=== PATIENT | male | born 1985 | race Caucasian/White ===

== ENCOUNTER 2019-08-23 10:26 | Emergency (ER) | payer SELFPAY ==
[2019-08-23 10:33] VITALS: BP 119/72; PULSE 120; RESP 20; TEMP 37.1; O2SAT 100
[2019-08-23] MEDS: IBUPROFEN IV 800 MG/200 ML 800 MG/200 ML BAG 400 MG IVPB (11:05)
[2019-08-23] MEDS: ceFAZolin SODIUM 1 GM VIAL IV PUSH (11:05)
[2019-08-23] MEDS: SODIUM CHLORIDE 0.9% IV 1,000 ML 999 ML IV CONT (11:06)
[2019-08-23] MEDS: WATER, STERILE FOR INJECTION 10 ML VIAL XX (12:27)
--- NOTE | 2019-08-23 13:00 | ED.GENADULT ---
HPI - General Adult General Chief complaint: Wound/Laceration <SHALA Jones Last Filed: 08/23/19 13:41> Stated complaint: bite on left leg <SHALA Jones Last Filed: 08/23/19 13:41> Time Seen by Provider: 08/23/19 10:39 <SHALA Jones Last Filed: 08/23/19 13:41> Related Data Allergies/adverse reactions: Allergies Allergy/AdvReac Type Severity Reaction Status Date / Time Contrast Media Allergy Mild Anaphylactic Uncoded 08/23/19 10:35 Shock SEA FOOD Allergy Unknown Anaphylaxis Uncoded 08/23/19 10:35 <SHALA Jones Last Filed: 08/23/19 13:41> Exam Narrative: Exam Narrative: GENERAL: Well-appearing, well-nourished, and in no acute distress. HEAD: Normocephalic, atraumatic. EYES: PERRLA and EOMI. ENT: Nares clear, no rhinorrhea or epistaxis. Mucous membranes moist. CHEST: Clear to auscultation. No respiratory distress. No wheezes rales or rhonchi HEART: Regular rate and rhythm. No murmur heard. EXTREMITIES: Normal range of motion. No edema. SKIN: Warm, dry, no rash. Patient with 3 cm red tender swollen lesion to the lateral aspect of the left mid mcconnell with purulent drainage NEURO: No focal deficits. Alert and oriented x3. Neurovascularly intact. Capillary refill less than 2 seconds PSYCH: Normal mood and affect. <SHALA Jones Last Filed: 08/23/19 13:41> Course Course Emergency Course: Patient in the room in no distress aware of case findings treatment plan diagnosis <SHALA Jones Last Filed: 08/23/19 13:41> Vital Signs Vital signs: Vital Signs Temperature 98.8 F 08/23/19 10:33 Pulse Rate 120 H 08/23/19 10:33 Respiratory Rate 20 08/23/19 10:33 Blood Pressure 119/72 08/23/19 10:33 Pulse Oximetry 100 08/23/19 10:33 Temperature 98.8 F 08/23/19 10:33 Pulse Rate 100 08/23/19 13:18 Respiratory Rate 12 08/23/19 13:18 Blood Pressure 121/75 08/23/19 13:18 Pulse Oximetry 99 08/23/19 13:18 <Domo Solis PA-C - Last Filed: 08/23/19 13:41> Vital Signs Temperature 98.8 F 08/23/19 10:33 Pulse Rate 120 H 08/23/19 10:33 Respiratory Rate 20 08/23/19 10:33 Blood Pressure 119/72 08/23/19 10:33 Pulse Oximetry 100 08/23/19 10:33 Temperature 98.8 F 08/23/19 10:33 Pulse Rate 100 08/23/19 13:18 Respiratory Rate 12 08/23/19 13:18 Blood Pressure 121/75 08/23/19 13:18 Pulse Oximetry 99 08/23/19 13:18 <Kimberly Pablo MD - Last Filed: 08/23/19 20:00> Procedures Abscess I/D skin: Date of Incision: 08/23/19 <Domo Solis PA-C - Last Filed: 08/23/19 13:41> Time of Incision: 13:01 <Domo Solis PA-C - Last Filed: 08/23/19 13:41> Side (if applicable): left <Domo Solis PA-C - Last Filed: 08/23/19 13:41> Local Anesthetic: lidocaine 1% <SHALA Jones Last Filed: 08/23/19 13:41> Technique: incised with #11 blade <SHALA Jones Last Filed: 08/23/19 13:41> Amount of fluid expressed (mL): 3 <SHALA Jones Last Filed: 08/23/19 13:41> Irrigation: No <SHALA Jones Last Filed: 08/23/19 13:41> Packing used?: iodoform <SHALA Jones Last Filed: 08/23/19 13:41> I&D Results: Pus and Blood <SHALA Jones Last Filed: 08/23/19 13:41> Complications: pain and bleeding <SHALA Jones Last Filed: 08/23/19 13:41> Medical Decision Making MDM Narrative Medical decision making narrative: Patient had I&D of his abscess in the room in no distress given some fluids had wound culture obtained felt appropriate for outpatient reevaluation <Dmoo Solis PA-C - Last Filed: 08/23/19 13:41> Vital Signs Vital Signs: Vital Signs Temperature 98.8 F 08/23/19 10:33 Pulse Rate 120 H 08/23/19 10:33 Respiratory Rate 20 08/23/19 10:33
[2019-08-23 13:18] VITALS: BP 121/75; PULSE 100; RESP 12; O2SAT 99
== END 2019-08-23 13:30 | disposition home or self-care (01) ==
PROVIDERS: Emergency Provider Emergency Medicine
DX: L02.416 Cutaneous abscess of left lower limb (principal)
CPT/HCPCS: 10061; 87070; 87075; 87147; 87186; 87205; 96365; 96375; 99284; J0690; J1741; J7030

== ENCOUNTER 2020-01-31 01:14 | Emergency (ER) | payer SELFPAY ==
[2020-01-31 01:26] VITALS: BP 133/89; PULSE 96; RESP 18; TEMP 36.1; O2SAT 99
[2020-01-31] MEDS: SODIUM CHLORIDE 0.9% IV 1,000 ML 999 ML IV CONT (01:48)
[2020-01-31] MEDS: ONDANSETRON INJ 4 MG/2 ML VIAL IV PUSH (01:48)
[2020-01-31 01:49] LABS: Basophils Absolute Auto 0.1 K/mm3 (0.0-0.1); Basophils Percent Auto 0.5 % (0.2-1.2); Eosinophils Absolute Auto 0.1 K/mm3 (0-0.3); Eosinophils Percent Auto 0.6 % (0-4.4); Hematocrit 50.4 % (42.0-52.0); Hemoglobin 17.8 g/dL (14.0-18.0); Immature Granulocyte Absolute 0.03 K/mm3 (0.00-0.031); Immature Granulocyte Percent A 0.2 % (0-0.5); Lymphocytes Absolute Auto 2.85 K/mm3 (0.9-3.2); Lymphocytes Percent Auto 22.1 % (18.3-44.2); Mean Corpuscular HGB Conc 35.3 g/dl (32-36); Mean Corpuscular Hemoglobin 31.2 pg (26-34); Mean Corpuscular Volume 88.3 fl (80-100); Mean Platelet Volume 11.2 fl (7.4-10.4); Monocytes Absolute Auto 1.3 K/mm3 (0.1-0.6); Monocytes Percent Auto 9.7 % (2.6-8.5); Neutrophils Absolute Auto 8.6 K/mm3 (1.3-6.7); Neutrophils Percent Auto 66.9 % (45.5-73.1); Platelet Count Result 242 k/mm3 (150-375); Red Blood Count 5.71 M/mm3 (4.6-6.20); Red Cell Distribution Width 12.3 % (11.5-14.5); White Blood Count 12.9 K/mm3 (4.5-10.0)
[2020-01-31 02:06] LABS: Alanine Aminotransferase 38 U/L (4-50); Albumin Level 4.7 g/dL (3.5-5.1); Alkaline Phosphatase 100 U/L (38-126); Anion Gap 9 mmol/L (8-16); Aspartate Amino Transferase 37 U/L (17-59); Blood Urea Nitrogen 11 mg/dL (9-20); Calcium 9.9 mg/dL (8.4-10.2); Carbon Dioxide 27 mmol/L (22-30); Chloride 101 mmol/L (98-107); Estimated CRCL calculation 104 ml/min; Estimated Glomerular Filt Rate > 60; Glucose 119 mg/dL (75-110); Lipase 24 U/L (23-300); Potassium 3.4 mmol/L (3.4-5.0); Sodium 137 mmol/L (137-145)
--- NOTE | 2020-01-31 02:19 | ED.NAVMDI ---
HPI - Nausea/Vomiting/Diarrhea General Chief complaint: Nausea/Vomiting/Diarrhea Stated complaint: vomiting,diarrhea,body feels numb Time Seen by Provider: 01/31/20 01:18 History of Present Illness HPI Narrative: Patient is a 34-year-old male who presents ER with nausea and vomiting. Symptoms began today. Reports he had 2 episodes of vomiting. This is associated with 6 episodes of diarrhea. Started out as large volume and then became smaller and smaller. Reports since then he has been feeling weak and then started feeling tingling in his fingertips and toes. No documented fevers or chills. Reports that there are no sick contacts at home but he does have children. No known Covid contacts. No alleviating factors. Related Data Allergies Allergy/AdvReac Type Severity Reaction Status Date / Time Contrast Media Allergy Intermediate Anaphylactic Uncoded 01/31/20 01:31 Shock SEA FOOD Allergy Intermediate Anaphylaxis Uncoded 01/31/20 01:31 Review of Systems Review of Systems: All systems reviewed & are unremarkable except as noted in HPI and below Constitutional: Constitutional: Denies chills, Denies fever(s) and Reports weakness ENT: Denies nasal congestion and Denies sore throat Gastrointestinal: Gastrointestinal: Denies abdominal pain, Reports diarrhea, Reports nausea and Reports vomiting Neurologic: Denies focal weakness and Denies numbness Comments: Hand and toe tingling PMFSH Past Medical History Medical History (Updated 01/31/20 @ 03:46 by Alex Dawn MD) Healthy adult male Surgical History Surgical History (Updated 01/31/20 @ 02:20 by Alex Dawn MD) No history of previous surgery Social History Social History (Updated 01/31/20 @ 02:21 by Alex Dawn MD) Tobacco type: cigarettes Gender identity (if verbalized by the patient): Male Exam Narrative: Exam Narrative: GENERAL: Fatigued-appearing, well-nourished, and in no acute distress. HEAD: Normocephalic, atraumatic. CHEST: Clear to auscultation. No respiratory distress. HEART: Regular rate and rhythm. Normal peripheral pulses. ABDOMEN: Soft, nontender, nondistended. EXTREMITIES: Normal range of motion. No edema. SKIN: Warm, dry, no rash. NEURO: No focal deficits. Alert and oriented x3. PSYCH: Normal mood and affect. Course Course Emergency Course: Tingling improved with IV fluid. Now reports he has new throbbing headache. Will give Toradol. Discharge home and will Covid swab. Discussed self-isolation until received results and patient verbalized understanding. Vital Signs Vital signs: Vital Signs Temperature 97.0 F L 01/31/20 01:26 Pulse Rate 96 01/31/20 01:26 Respiratory Rate 18 01/31/20 01:26 Blood Pressure 133/89 01/31/20 01:26 Pulse Oximetry 99 01/31/20 01:26 Temperature 97.0 F L 01/31/20 01:26 Pulse Rate 78 01/31/20 03:00 Respiratory Rate 16 01/31/20 03:00 Blood Pressure 126/78 01/31/20 03:00 Pulse Oximetry 100 01/31/20 03:00 MDM - Nausea/Vomiting/Diarrhea Lab Data Result diagrams: 01/31/20 01:40 01/31/20 01:40 Labs: Lab Results 01/31/20 01/31/20 01/31/20 Range/Units 01:40 01:40 03:04 WBC 12.9 H (4.5-10.0) K/mm3 RBC 5.71 (4.6-6.20) M/mm3 Hgb 17.8 (14.0-18.0) g/dL Hct 50.4 (42.0-52.0) % MCV 88.3 (80-100) fl MCH 31.2 (26-34) pg MCHC 35.3 (32-36) g/dl RDW 12.3 (11.5-14.5) % Plt Count 242 (150-375) k/mm3 MPV 11.2 H (7.4-10.4) fl Immature Gran % (Auto) 0.2 (0-0.5) % Neut % (Auto) 66.9 (45.5-73.1) % Lymph % (Auto) 22.1 (18.3-44.2) % [place]more % (Auto) 9.7 H (2.6-8.5) % Eos % (Auto) 0.6 (0-4.4) % Baso % (Auto) 0.5 (0.2-1.2) % Lymph # (Auto) 2.85 (0.9-3.2) K/mm3 [place]more # (Auto) 1.3 H (0.1-0.6) K/mm3 Eos # (Auto) 0.1 (0-0.3) K/mm3 Baso # (Auto) 0.1 (0.0-0.1) K/mm3 Abs Immat Gran (auto) 0.03 (0.00-0.031) K/mm3 Absolute Neuts (auto) 8.
[2020-01-31 03:00] VITALS: BP 126/78; PULSE 78; RESP 16; O2SAT 100
[2020-01-31 03:19] LABS: Add Urine Microscopic? YES; Appearance Urine Clear (Clear); Bilirubin Urine Negative (Negative); Blood Urine Negative (Negative); Color Urine Yellow (Yellow); Glucose Urine UA Negative (Negative); Ketones Urine 1+ mg/dL (Negative); Leukocyte Esterase Ur Negative LEU/UL (Negative); Mucus Urine Heavy /lpf; Nitrate Urine Negative (Negative); Protein Urine 1+ mg/dL (Negative); RBC Urine 0-2 /hpf (0-2); Specific Grav Ur 1.028 (1.001-1.035); Squamous Epithelial Cell Urine Rare /hpf (Few); WBC Urine 0-3 /hpf
[2020-01-31] MEDS: KETOROLAC 30 MG/ML VIAL (*BKC) IV PUSH (03:53)
[2020-01-31 03:59] VITALS: BP 138/91; PULSE 91; RESP 18; TEMP 36.9; O2SAT 99
[2020-01-31 22:42] LABS: SARS-CoV-2 RNA PCR Negative
== END 2020-01-31 03:59 | disposition home or self-care (01) ==
PROVIDERS: Emergency Provider Emergency Medicine
DX: B34.9 Viral infection, unspecified (principal); Z20.828 Contact with and (suspected) exposure to other viral communicable diseases; F17.210 Nicotine dependence, cigarettes, uncomplicated
CPT/HCPCS: 36415; 80053; 81001; 83690; 85025; 87635; 96361; 96374; 96375; 99284; C9803; J1885; J2405; J7030; U0003

== ENCOUNTER 2020-02-16 07:40 | Emergency (ER) | payer BC, SELFPAY ==
--- NOTE | ~2020-02-16 | CT_ITS ---
EXAMINATION: CT abdomen pelvis wo con DATE: 02/16/2020 08:26 INDICATION: Lower abdominal pain. Flank pain. TECHNIQUE: Computed tomography (CT) of the abdomen and pelvis was performed without intravenous contr ast. Automated exposure control and iterative reconstruction technique were employed. The dose-length product was 226.59 mGy-cm. COMPARISON: None FINDINGS: Lung bases are clear. Visualized inferior heart is normal. No pericardial or pleural effusion. Focal hepatic steatosis at the ligamentum teres. Gallbladder, spleen, pancreas and bilateral adrenal glands are normal. Kidneys and ureters are normal with no urolithiasis, hydroureteronephrosis or perinephri c/ureteral stranding. No bowel obstruction. Normal appendix. Bladder is normal. No free intraperitone al gas or fluid. No pathologically enlarged abdominal or pelvic lymphadenopathy. Minimal anterior wed ging at T11-L1. IMPRESSION: 1. No acute intra-abdominal/pelvic process. Reviewed, dictated and finalized at location A. [employer]
--- NOTE | 2020-02-16 07:42 | ED.ABDPAIN ---
HPI - Abdominal Pain General Chief Complaint: Abdominal Pain Stated Complaint: abd and back pain/smell from pores Time Seen by Provider: 02/16/20 07:42 Source: patient Mode of arrival: ambulatory Limitations: no limitations History of Present Illness HPI narrative: Patient is a 34-year-old male who presents for evaluation of lower abdominal pain. Patient states lower abdominal pain began 2 to 3 days ago, described as dull, aching in nature that radiates in a bandlike pattern to the bilateral lower flanks. No midline back pain. No numbness or weakness. Noted with ambulation, no difficulty with bowel movements or urination. No recent falls or injuries. Patient states he abdominal pain is associated with dysuria without hematuria, testicular pain or penile discharge. Patient denies any history of sexually transmitted infection. States he may have been exposed to genital herpes in the past, but states he has never had any chlamydia or gonorrhea. He denies any swollen lymph nodes in his groin. He reports nausea without vomiting. He denies fever or chills. No cough, chest pain or shortness of breath. Patient states he also has a strange smell in his sheets and he is worried he words smells coming from his pores. He has no known history of diabetes. Denies any history of previous medical problems or surgeries. Patient states he is a daily drinker, approximately 4-5 shots daily. No history of alcohol withdrawal seizures or seizures in general. Related Data Allergies Allergy/AdvReac Type Severity Reaction Status Date / Time Contrast Media Allergy Intermediate Anaphylactic Uncoded 02/16/20 07:52 Shock SEA FOOD Allergy Intermediate Anaphylaxis Uncoded 02/16/20 07:52 Review of Systems Review of Systems: Narrative: CONSTITUTIONAL: Denies fever, chills, or sweats. EYES: Denies visual changes, redness, or discharge. ENT: Denies rhinorrhea, congestion, sore throat, or otalgia. CARDIOVASCULAR: Denies chest pain, palpitations, or edema. RESPIRATORY: Denies cough or dyspnea. GASTROINTESTINAL: Reports lower abdominal pain, nausea without vomiting, reports mild diarrhea GENITOURINARY: Denies dysuria or hematuria. SKIN: Denies rash or itching. MUSCULOSKELETAL: Reports lower back pain without joint pain NEUROLOGIC: Denies headache, numbness, or weakness. [facility] Past Medical History Medical History Healthy adult male Surgical History Surgical History No history of previous surgery Social History Social History (Updated 02/16/20 @ 08:11 by Teetee Nolan MD) Smoking status: Former smoker Tobacco type: cigarettes Alcohol intake: current Drinks per week: 20 Substance use: never Gender identity (if verbalized by the patient): Male Exam Narrative: Exam Narrative: GENERAL: Awake, alert, conversant HEAD: Normocephalic, atraumatic. EYES: PERRLA and EOMI. ENT: Nares clear, no rhinorrhea or epistaxis. Mucous membranes moist. NECK: Supple. No midline cervical tenderness. CHEST: No respiratory distress, breathing even and non labored HEART: Tachycardic rate, sinus rhythm ABDOMEN:Non distended, mild tenderness in the right and left lower abdomen without guarding, rebound or rigidity, mild bilateral CVA tenderness, no midline lumbar or thoracic tenderness, no step-offs or deformities EXTREMITIES: Normal range of motion. No edema. SKIN: Warm, dry, no rash. NEURO:No focal deficits. Alert and oriented x3 Course Vital Signs Vital signs: Vital Signs Temperature 36.7 C 02/16/20 07:49 Pulse Rate 110 H 02/16/20 07:49 Respiratory Rate 16 02/16/20 07:49 Blood Pressure 140/97 H 02/16/20 07:49 Pulse Oximetry 100 02/16/20 07:49 Temperature 36.7 C 02/16/20 07:49 Pulse Rate 80 02/16/20 10:00 Respiratory Rate 16 02/16/20 10:00 Blood Pressure 123/84 02/16/20 10:00 Pulse Oximetry 98 02/16/20 10
[2020-02-16 07:49] VITALS: BP 140/97; PULSE 110; RESP 16; TEMP 36.7; O2SAT 100
[2020-02-16] MEDS: SODIUM CHLORIDE 0.9% IV 1,000 ML 999 ML IV CONT (08:20)
[2020-02-16 08:31] LABS: Basophils Absolute Auto 0.1 K/mm3 (0.0-0.1); Basophils Percent Auto 0.7 % (0.2-1.2); Eosinophils Absolute Auto 0.1 K/mm3 (0-0.3); Eosinophils Percent Auto 1.6 % (0-4.4); Hematocrit 48.8 % (42.0-52.0); Hemoglobin 17.1 g/dL (14.0-18.0); Immature Granulocyte Absolute 0.02 K/mm3 (0.00-0.031); Immature Granulocyte Percent A 0.2 % (0-0.5); Lymphocytes Absolute Auto 2.89 K/mm3 (0.9-3.2); Lymphocytes Percent Auto 34.6 % (18.3-44.2); Mean Corpuscular Hemoglobin 30.6 pg (26-34); Mean Corpuscular Volume 87.5 fl (80-100); Mean Platelet Volume 11.4 fl (7.4-10.4); Monocytes Absolute Auto 0.8 K/mm3 (0.1-0.6); Monocytes Percent Auto 10.1 % (2.6-8.5); Neutrophils Absolute Auto 4.4 K/mm3 (1.3-6.7); Neutrophils Percent Auto 52.8 % (45.5-73.1); Platelet Count Result 187 k/mm3 (150-375); Red Blood Count 5.58 M/mm3 (4.6-6.20); Red Cell Distribution Width 11.9 % (11.5-14.5); White Blood Count 8.4 K/mm3 (4.5-10.0)
[2020-02-16] MEDS: FOLIC ACID 1 MG TABLET PO (08:40)
[2020-02-16] MEDS: THIAMINE HCL 200 MG/2 ML VIAL 100 MG IM (08:40)
[2020-02-16 08:47] LABS: Ethanol < 10 mg/dL (<10)
[2020-02-16 08:49] LABS: Glucose Point of Care 143 (65-105)
[2020-02-16 08:49] LABS: Alanine Aminotransferase 54 U/L (4-50); Albumin Level 4.3 g/dL (3.5-5.1); Alkaline Phosphatase 88 U/L (38-126); Anion Gap 12 mmol/L (8-16); Aspartate Amino Transferase 50 U/L (17-59); Bilirubin,Total 0.9 mg/dL (0.2-1.3); Blood Urea Nitrogen 13 mg/dL (9-20); Calcium 9.5 mg/dL (8.4-10.2); Carbon Dioxide 25 mmol/L (22-30); Chloride 101 mmol/L (98-107); Estimated CRCL calculation 109 ml/min; Estimated Glomerular Filt Rate > 60; Glucose 155 mg/dL (75-110); Lipase 37 U/L (23-300); Potassium 3.4 mmol/L (3.4-5.0); Sodium 138 mmol/L (137-145)
[2020-02-16 09:03] LABS: Add Urine Microscopic? YES; Appearance Urine Clear (Clear); Bacteria Urine Trace /hpf; Bilirubin Urine Negative (Negative); Blood Urine Negative (Negative); Calcium Oxalate Crystals Urine Present /hpf; Color Urine Yellow (Yellow); Glucose Urine UA Negative (Negative); Ketones Urine 1+ mg/dL (Negative); Leukocyte Esterase Ur Negative LEU/UL (Negative); Mucus Urine Heavy /lpf; Nitrate Urine Negative (Negative); Protein Urine 1+ mg/dL (Negative); RBC Urine 0-2 /hpf (0-2); Specific Grav Ur 1.026 (1.001-1.035); WBC Urine 0-3 /hpf
[2020-02-16 10:00] VITALS: BP 123/84; PULSE 80; RESP 16; O2SAT 98
--- NOTE | 2020-02-16 10:16 | PC.NURSE ---
called chemjuan josé, added on Beta Hydroxy 1012. called heme, added on HGB and A1C 1016
[2020-02-16 10:30] LABS: Beta-Hydroxybutyrate/Acetoacetate 0.46 mmol/L (0.02-0.27)
== END 2020-02-16 11:40 | disposition home or self-care (01) ==
PROVIDERS: Emergency Provider Emergency Medicine
DX: R10.30 Lower abdominal pain, unspecified (principal); E86.0 Dehydration; Z87.891 Personal history of nicotine dependence
CPT/HCPCS: 36415; 74176; 80053; 80307; 81001; 82010; 82948; 83036; 83690; 85025; 87491; 87591; 96360; 96372; 99284; A9270; J3411; J7030

== ENCOUNTER 2020-08-02 10:18 | Emergency (ER) | payer BC, SELFPAY ==
[2020-08-02] VITALS (19 sets, daily range): BP systolic 115–137; BP diastolic 67–102; PULSE 78–103; RESP 16–18; TEMP 37; O2SAT 97–100
[2020-08-02] MEDS: SODIUM CHLORIDE 0.9% IV 1,000 ML 999 ML IV CONT (10:44)
[2020-08-02 10:56] LABS: Basophils Absolute Auto 0.1 K/mm3 (0.0-0.1); Basophils Percent Auto 0.6 % (0.2-1.2); Eosinophils Absolute Auto 0.2 K/mm3 (0-0.3); Eosinophils Percent Auto 2.3 % (0-4.4); Hematocrit 48.8 % (42.0-52.0); Hemoglobin 16.8 g/dL (14.0-18.0); Immature Granulocyte Absolute 0.03 K/mm3 (0.00-0.031); Immature Granulocyte Percent A 0.3 % (0-0.5); Lymphocytes Absolute Auto 2.73 K/mm3 (0.9-3.2); Lymphocytes Percent Auto 28.2 % (18.3-44.2); Mean Corpuscular HGB Conc 34.4 g/dl (32-36); Mean Corpuscular Hemoglobin 31.4 pg (26-34); Mean Corpuscular Volume 91.2 fl (80-100); Mean Platelet Volume 10.9 fl (7.4-10.4); Monocytes Absolute Auto 1.5 K/mm3 (0.1-0.6); Monocytes Percent Auto 15.7 % (2.6-8.5); Neutrophils Absolute Auto 5.1 K/mm3 (1.3-6.7); Neutrophils Percent Auto 52.9 % (45.5-73.1); Platelet Count Result 205 k/mm3 (150-375); Red Blood Count 5.35 M/mm3 (4.6-6.20); Red Cell Distribution Width 12.2 % (11.5-14.5); White Blood Count 9.7 K/mm3 (4.5-10.0)
[2020-08-02 11:06] LABS: Alanine Aminotransferase 35 U/L (4-50); Albumin Level 4.4 g/dL (3.5-5.1); Alkaline Phosphatase 124 U/L (38-126); Anion Gap 9 mmol/L (8-16); Aspartate Amino Transferase 56 U/L (17-59); Bilirubin,Total 0.8 mg/dL (0.2-1.3); Blood Urea Nitrogen 8 mg/dL (9-20); Calcium 9.6 mg/dL (8.4-10.2); Carbon Dioxide 30 mmol/L (22-30); Chloride 101 mmol/L (98-107); Estimated CRCL calculation 100 ml/min; Estimated Glomerular Filt Rate > 60; Glucose 103 mg/dL (75-110); Lipase 54 U/L (23-300); Potassium 3.6 mmol/L (3.4-5.0); Sodium 140 mmol/L (137-145)
[2020-08-02 11:45] LABS: Add Urine Microscopic? YES; Appearance Urine Cloudy (Clear); Bilirubin Urine Negative (Negative); Blood Urine Negative (Negative); Color Urine Yellow (Yellow); Glucose Urine UA Negative (Negative); Ketones Urine Negative (Negative); Leukocyte Esterase Ur 3+ LEU/UL (Negative); Mucus Urine Moderate /lpf; Nitrate Urine Negative (Negative); Protein Urine 1+ mg/dL (Negative); Specific Grav Ur 1.018 (1.001-1.035); Urobilinogen Urine Negative mg/dL (<2.0); WBC Urine >75 /hpf
--- NOTE | 2020-08-02 12:33 | ED.GENADULT ---
HPI - General Adult General Chief complaint: Urogenital-Male Stated complaint: low abd pain/burning with urination Time Seen by Provider: 08/02/20 10:29 Source: patient and RN notes reviewed Mode of arrival: ambulatory Limitations: no limitations History of Present Illness HPI narrative: Patient is a 34-year-old male who presents with green discharge from the penis with suprapubic pain and abdominal discomfort for the last couple of days patient notes concern for STD notes that he has a partner with potential for STD denies vomiting fever or similar occurrence or other complaints has not taken anything for his symptoms nor is he been seen for this complaint Related Data Home Medications Medication Instructions Recorded Confirmed No Home Medications 08/02/20 08/02/20 Allergies Allergy/AdvReac Type Severity Reaction Status Date / Time Contrast Media Allergy Intermediate Anaphylactic Uncoded 08/02/20 10:27 Shock SEA FOOD Allergy Intermediate Anaphylaxis Uncoded 08/02/20 10:27 Review of Systems Review of Systems: All systems reviewed & are unremarkable except as noted in HPI and below PMFSH Past Medical History Medical History Healthy adult male Surgical History Surgical History No history of previous surgery Social History Social History Smoking status: Former smoker Tobacco type: cigarettes Alcohol intake: current Drinks per week: 20 Substance use: never Gender identity (if verbalized by the patient): Male Exam Narrative: Exam Narrative: GENERAL: Well-appearing, well-nourished, and in no acute distress. HEAD: Normocephalic, atraumatic. EYES: PERRLA and EOMI. ENT: Nares clear, no rhinorrhea or epistaxis. Mucous membranes moist. CHEST: Clear to auscultation. No respiratory distress. No wheezes rales or rhonchi HEART: Regular rate and rhythm. No murmur heard. Normal peripheral pulses. ABDOMEN: Soft, suprapubic tenderness to palpation, nondistended EXTREMITIES: Normal range of motion. No edema. SKIN: Warm, dry, no rash. NEURO: No focal deficits. Alert and oriented x3. PSYCH: Normal mood and affect. Course Course Emergency Course: Patient with likely urethritis has chlamydia and gonorrhea pending urinary tract infection on evaluation given Rocephin will be discharged with primary care follow-up provided with reasons to return and agrees with this plan Vital Signs Vital signs: Vital Signs Temperature 98.6 F 08/02/20 10:24 Pulse Rate 103 H 08/02/20 10:24 Respiratory Rate 16 08/02/20 10:24 Blood Pressure 135/98 H 08/02/20 10:24 Pulse Oximetry 99 08/02/20 10:24 Temperature 98.6 F 08/02/20 10:24 Pulse Rate 80 08/02/20 10:47 Respiratory Rate 16 08/02/20 10:47 Blood Pressure 135/98 H 08/02/20 10:47 Pulse Oximetry 100 08/02/20 10:47 Medical Decision Making MDM Narrative Medical decision making narrative: Patient with urethritis will be discharged home with outpatient follow-up agreeing with this plan afebrile nontoxic-appearing no distress Vital Signs Vital Signs: Vital Signs Temperature 98.6 F 08/02/20 10:24 Pulse Rate 103 H 08/02/20 10:24 Respiratory Rate 16 08/02/20 10:24 Blood Pressure 135/98 H 08/02/20 10:24 Pulse Oximetry 99 08/02/20 10:24 Temperature 98.6 F 08/02/20 10:24 Pulse Rate 80 08/02/20 10:47 Respiratory Rate 16 08/02/20 10:47 Blood Pressure 135/98 H 08/02/20 10:47 Pulse Oximetry 100 08/02/20 10:47 Lab Data Result diagrams: 08/02/20 10:49 08/02/20 10:49 Labs: Lab Results 08/02/20 08/02/20 08/02/20 Range/Units 10:49 10:49 11:25 WBC 9.7 (4.5-10.0) K/mm3 RBC 5.35 (4.6-6.20) M/mm3 Hgb 16.8 (14.0-18.0) g/dL Hct 48.8 (42.0-52.0) % MCV 91.2 (80-100) fl MCH 31.4 (26-34)
== END 2020-08-02 12:46 | disposition home or self-care (01) ==
PROVIDERS: Emergency Medicine Emergency Medical Services; Emergency Provider Emergency Medicine
DX: N34.2 Other urethritis (principal); Z87.891 Personal history of nicotine dependence
CPT/HCPCS: 36415; 80053; 81001; 83690; 85025; 87086; 87491; 87591; 96365; 99284; J0696; J7030